=== PATIENT | male | born 1940 ===

== ENCOUNTER 2019-04-25 07:09 | Day surgery (SDC) | payer OTHER ==
[~2019-04-25 07:09] MED LIST: AZOR 5-20 MG T1 EACH; HYDROCHLOROTHIA25 MG; LOSARTAN POTASS50 MG
== END 2019-04-25 16:45 | disposition home or self-care (01) ==
LOC: CIR.AMB 07:09
DX: M65.842 Other synovitis and tenosynovitis, left hand (principal)